=== PATIENT | male | born 1990 | race Caucasian/White ===

== ENCOUNTER 2025-03-13 07:02 | Day surgery (SDC) | payer BC ==
[~2025-03-13] VITALS: Ht 180.3 cm; Wt 108.0 kg
== END 2025-03-13 08:55 | disposition home or self-care (01) ==
LOC: ORSCSDS 07:02
PROVIDERS: Internal Medicine Gastroenterology
PROC: 0DBM8ZX Excision of Descending Colon, Via Natural or Artificial Opening Endoscopic, Diagnostic (ICD-10-PCS; principal; 2025-03-13 08:00)
PROC: 0DJD8ZZ Inspection of Lower Intestinal Tract, Via Natural or Artificial Opening Endoscopic (ICD-10-PCS; principal; 2025-03-13 08:00)
DX: R19.4 Change in bowel habit (principal); R14.0 Abdominal distension (gaseous); K63.5 Polyp of colon
CPT/HCPCS: 88305; J2704; J7120